=== PATIENT | male | born 2000 | race Caucasian/White ===

== ENCOUNTER 2021-04-11 23:10 | Inpatient (IN) | payer SELFPAY ==
[~2021-04-11 23:10] MED LIST: Iopamidol-370 76% 500 ML 1 ML ONE
[2021-04-12 00:06] LABS: Hemoglobin 14.1 g/dL (14.0-18.0); Mean Corpuscular HGB CONC 32.3 g/dL (32.0-36.0); Mean Corpuscular Hemoglobin 28.9 pg (25.0-35.0); Mean Corpuscular Volume 89.3 fL (78.0-98.0); Mean Platelet Volume 7.1 fL (7.4-10.4); Platelet Count 269 thou/uL (130-400); RBC Distribution Width 12.3 % (11.5-14.5); Red Blood Cell (RBC) Count 4.88 mill/uL (4.00-5.20); White Blood Cell (WBC) Count 25.1 thou/uL (4.8-10.8)
[2021-04-12 00:23] LABS: Band 8 % (5-11); Lymphocytes 10 % (28-48); MDiff Complete? YES; Monocytes 7 % (0-4); Neutrophil 72 % (31-61); Platelet Morphology Comment Appears Adequate; RBC Morphology Normal; Reactive Lymphocytes 3 % (0-10)
[2021-04-12 04:16] LABS: Bacteria/HPF None Seen HPF (None Seen); Bilirubin Negative (Negative); Blood, Urine Trace (Negative); Clarity Clear (Clear); Glucose, Urine (Dipstick) Normal (Negative); Ketone, Urine 20 mg/dL (Negative); Leukocyte Negative Leu/uL (Negative); Nitrite Negative (Negative); Protein, Urine (Dipstick) 20 mg/dL (Neg-Trace); RBC/HPF 0-3 HPF (0-3); Squamous Epithelial 0-3 HPF (0-3); WBC/HPF 0-3 HPF (0-3); pH, Urine 6.5 (5.0-9.0)
[2021-04-12 04:18] LABS: Specific Gravity, Urine 1.065 (1.002-1.036)
[2021-04-12] MEDS ORDERED: Vancomycin 1 GM in Premix Bag 1 BAG IVPB SCH ×3 (05:00→13:00)
[2021-04-12] MEDS ORDERED: Cefepime 2 GM in Sodium Chloride 0.9% 100 ML IVPB SCH (06:00)
[2021-04-12] MEDS ORDERED: Calcium Carbonate 500 MG ChewTAB PO PRN (09:18)
[2021-04-12] MEDS ORDERED: Acetaminophen 325 MG TAB PO PRN (09:18)
[2021-04-12] MEDS ORDERED: Ondansetron PF 4 MG/2 ML Vial IVP PRN (09:18)
[2021-04-12] MEDS ORDERED: Ondansetron ODT 4 MG TAB PO PRN (09:18)
[2021-04-12] MEDS ORDERED: HYDROcodone/Acetaminophen 5/325 mg Tablet PO PRN (09:18)
[2021-04-12] MEDS ORDERED: Meropenem 1 GM in Sodium Chloride 0.9% 100 ML IVPB SCH (09:30)
[2021-04-12] MEDS ORDERED: MEROPENEM 1 GM/50 ML 1 GM in Premix Bag 1 BAG IVPB SCH (11:00)
[2021-04-12] MEDS ORDERED: Magnevist 469MG/ML 20 ML VIAL ONE (11:22)
[2021-04-12] MEDS: Sodium Chloride 0.9% 1,000 ML IV SCH ×2 (11:46→21:14)
[2021-04-12 12:20] LABS: SARS-CoV-2 PCR by NAA Not Detected (NotDetected)
[2021-04-12] MEDS ORDERED: Saccharomyces boulardii 250 MG CAP PO SCH (21:00)
[2021-04-12] MEDS: MEROPENEM 1 GM/50 ML 1 GM in Premix Bag 1 BAG IVPB SCH (21:13)
[2021-04-12] MEDS: Senokot S 8.6-50 MG TAB PO SCH (21:14)
[2021-04-13] MEDS: MEROPENEM 1 GM/50 ML 1 GM in Premix Bag 1 BAG IVPB SCH ×2 (03:35→11:39)
[2021-04-13] MEDS: Sodium Chloride 0.9% 1,000 ML IV SCH (05:57)
[2021-04-13 06:42] LABS: Hemoglobin 14.2 g/dL (14.0-18.0); Mean Corpuscular HGB CONC 34.9 g/dL (32.0-36.0); Mean Corpuscular Hemoglobin 30.7 pg (25.0-35.0); Mean Corpuscular Volume 87.9 fL (78.0-98.0); Mean Platelet Volume 7.2 fL (7.4-10.4); Platelet Count 289 thou/uL (130-400); RBC Distribution Width 12.1 % (11.5-14.5); Red Blood Cell (RBC) Count 4.63 mill/uL (4.00-5.20); White Blood Cell (WBC) Count 13.6 thou/uL (4.8-10.8)
[2021-04-13 06:48] LABS: ALT (SGPT) 25 U/L (8-55); AST (SGOT) 24 U/L (5-34); Albumin 3.8 g/dL (3.5-5.0); Alkaline Phosphatase 68 U/L (50-130); Anion Gap 9 mmol/L (10-20); BUN (Urea Nitrogen) 7 mg/dL (8.9-20.6); Bilirubin, Total 0.4 mg/dL (0.2-1.2); Calc. Creatinine Clearance 0 mL/min (70-130); Calcium 9.3 mg/dL (7.8-10.44); Carbon Dioxide 32 mmol/L (22-29); Chloride 101 mmol/L (98-107); Globulin 3.3 g/dL (2.4-3.5); Glucose 95 mg/dL (70-105); Potassium 4.4 mmol/L (3.5-5.1); Protein, Total 7.1 g/dL (6.0-8.3); Sodium 138 mmol/L (136-145)
[2021-04-13 08:23] VITALS: TEMP 97.9
[2021-04-13] MEDS: Senokot S 8.6-50 MG TAB PO SCH (08:29)
[2021-04-13 08:40] LABS: Band 34 % (5-11); Eosinophils 2 % (0-10); Lymphocytes 14 % (28-48); MDiff Complete? YES; Monocytes 7 % (0-4); Neutrophil 42 % (31-61); Platelet Morphology Comment Appears Adequate; RBC Morphology Normal; Reactive Lymphocytes 1 % (0-10)
[2021-04-13 12:10] VITALS: BP 126/77
[2021-04-15] MEDS ORDERED: FLU VACC QS2021-22(6MOS UP)/PF 60 MCG/0.5 ML SYRINGE IM ONE (09:00)
== END 2021-04-13 13:18 | disposition home or self-care (01) | DRG 552 ==
LOC: ERS 23:10 → SURG B 04-12 02:27 → OBSVTOIN 04-12 08:46
PROVIDERS: ADMIT Internal Medicine; ATTEND Internal Medicine
DX: M54.50 Low back pain, unspecified (principal); E87.1 Hypo-osmolality and hyponatremia; Z20.822 Contact with and (suspected) exposure to COVID-19; F17.220 Nicotine dependence, chewing tobacco, uncomplicated; E86.0 Dehydration; Z88.0 Allergy status to penicillin; Z86.16 Personal history of COVID-19
CPT/HCPCS: 36415; 72129; 72158; 80053; 81003; 81015; 85025; 86140; 87633; 96374; 96375; A9579; G0378; J0692; J2185; J3370; J3490; J7050; Q9967; U0003; U0005